=== PATIENT | female | born 1985 | race Caucasian/White ===

== ENCOUNTER 2020-02-27 15:17 | Emergency (ER) | payer MEDICAID ==
[2020-02-27 18:38] VITALS: BP 118/68
== END 2020-02-27 18:30 | disposition home or self-care (01) ==
LOC: ED 15:17
DX: F51.9 Sleep disorder not due to a substance or known physiological condition, unspecified (principal)

== ENCOUNTER 2021-05-29 17:44 | Emergency (ER) | payer MEDICAID ==
[~2021-05-29] VITALS: Ht 154.9 cm; Wt 60.0 kg
[2021-05-29 18:26] LABS: HEMOGLOBIN 14.7 g/dl (12.0-16.0); IMMATURE GRANULOCYTES 0.1 % (0.0-5.0); MEAN CELL VOLUME 90.7 fL CALC (80.0-100.0); MEAN CORPUSCULAR HGB 30.3 pG CALC (26.0-32.0); MEAN CORPUSCULAR HGB CONC 33.4 g/dL CAL (32.0-36.0); NEUT# 4.43 thou/uL (2.00-7.15); RED BLOOD COUNT 4.85 mill/uL (4.20-5.60)
[2021-05-29 18:38] LABS: ALBUMIN 4.4 g/dL (3.2-5.0); ALKALINE PHOSPHATASE 76 u/l (38-126); ANION GAP 13 (6-22 (CALC)); BILIRUBIN, TOTAL 0.7 mg/dL (0.0-1.4); BUN 11 mg/dL (7-17); BUN/CREATININE RATIO 15 (12-20 (CALC)); CARBON DIOXIDE 27 mmol/l (22-30); CHLORIDE 104 mmol/l (95-108); CREATININE 0.8 mg/dL (0.5-1.0); GFR > 60 ML/MIN (>=60 (CALC)); GFR FOR AFR.AMER. > 60 ML/MIN (>=60 (CALC)); POTASSIUM 3.6 mmol/l (3.5-5.1); SGOT/AST 23 u/l (14-36); SODIUM 140 mmol/l (137-146)
[2021-05-29 20:17] LABS: URINE BILIRUBIN - DIPSTICK NEGATIVE (NEGATIVE); URINE BLOOD DIPSTICK LARGE (NEGATIVE); URINE COLOR YELLOW; URINE GLUCOSE - DIPSTICK NEGATIVE (NEGATIVE); URINE KETONE NEGATIVE (NEGATIVE); URINE LEUK ESTERASE NEGATIVE (NEGATIVE); URINE PROTEIN - DIPSTICK NEGATIVE (NEG-TRACE); URINE SPECIFIC GRAVITY >=1.030
[2021-05-29 20:18] LABS: URINE NITRITE - DIPSTICK NEGATIVE (Negative)
[2021-05-29 20:29] LABS: URINE WBC 0-2 WBC/hpf (0-5)
[2021-05-29 20:30] LABS: URINE AMORPH SEDIMENT FEW hpf (NONE-FEW)
[2021-05-29 20:38] LABS: TSH, 3RD GENERATION 3.27 uIU/mL (0.47 - 4.68)
[2021-05-29 20:58] VITALS: BP 117/81
== END 2021-05-29 21:12 | disposition home or self-care (01) ==
LOC: ED 17:44
PROVIDERS: Emergency Medicine; Family Medicine
DX: F19.10 Other psychoactive substance abuse, uncomplicated (principal); I49.3 Ventricular premature depolarization

== ENCOUNTER 2022-07-13 00:17 | Emergency (ER) | payer MEDICAID ==
[2022-07-13] VITALS (8 sets, daily range): BP systolic 120–135; BP diastolic 84–95
[~2022-07-13] VITALS: Ht 154.9 cm; Wt 54.0 kg
[~2022-07-13 00:17] MED LIST: AMOX/K CLAV875 M1 PO
[2022-07-13] MEDS ORDERED: FIORICET PO (03:05)
[2022-07-13] MEDS ORDERED: ONDANSETRON4 MG PO (03:05)
== END 2022-07-13 03:13 | disposition home or self-care (01) ==
LOC: ED 00:17
DX: G43.909 Migraine, unspecified, not intractable, without status migrainosus (principal); F17.200 Nicotine dependence, unspecified, uncomplicated

== ENCOUNTER 2022-07-20 16:03 | Emergency (ER) | payer MEDICAID ==
[~2022-07-20 16:03] MED LIST changes: +FIORICET PO; +ONDANSETRON4 MG PO
== END 2022-07-20 17:03 | disposition home or self-care (01) | DRG 951 ==
LOC: ED 16:03 → LWOBS 17:03
DX: Z53.21 Procedure and treatment not carried out due to patient leaving prior to being seen by health care provider (principal)

== ENCOUNTER 2023-11-27 12:08 | Emergency (ER) | payer MEDICAID | END 2023-11-27 12:58 | disposition home or self-care (01) | DRG 951 | LOC: ED 12:08 → LWOBS 12:49 | DX: Z53.21 Procedure and treatment not carried out due to patient leaving prior to being seen by health care provider (principal) ==